=== PATIENT | female | born 1980 | race Caucasian/White ===

== ENCOUNTER 2019-04-06 05:46 | Inpatient (IN) | payer OTHER ==
[2019-04-03 10:19] VITALS: BMI 34.6
[2019-04-06] MEDS ORDERED: CeleCOXIB 100 MG CAP ONE (06:13)
[2019-04-06] MEDS ORDERED: Gabapentin 300 MG CAP ONE (06:13)
[2019-04-06] MEDS ORDERED: Famotidine/PF 20 mg/2ml Vial ONE (06:14)
[2019-04-06] MEDS ORDERED: Bupivacaine HCl 0.5%/Epinephrine 1:200,000/PF 30 ml Vial ONE (06:40)
[2019-04-06] MEDS ORDERED: Fentanyl 100 MCG/2 ML VIAL ONE ×2 (06:57→07:27)
[2019-04-06] MEDS ORDERED: Ketamine 50 MG/ML (10ML VIAL) ONE (06:57)
[2019-04-06] MEDS ORDERED: Midazolam HCl 2 mg/2 ml Vial ONE (07:26)
[2019-04-06] MEDS ORDERED: HYDROcodone/Acetaminophen 5/325 mg Tablet PO PRN (09:12)
[2019-04-06] MEDS ORDERED: Morphine 4 MG/ML VIAL SLOW IVP PRN (09:12)
[2019-04-06] MEDS ORDERED: diphenhydrAMINE 25 MG CAP PO PRN (09:12)
[2019-04-06] MEDS ORDERED: Ondansetron PF 4 MG/2 ML Vial IVP PRN (09:12)
[2019-04-06] MEDS ORDERED: Bisacodyl 10 MG SUPP PR PRN (09:12)
[2019-04-06] MEDS ORDERED: Zolpidem Tartrate 5 MG TAB PO PRN (09:12)
[2019-04-06] MEDS ORDERED: Promethazine HCl 25 MG/ML VIAL IM PRN ×2 (09:12→09:27)
[2019-04-06] MEDS ORDERED: Simethicone Chewable 80 MG TAB PO PRN (09:12)
[2019-04-06] MEDS ORDERED: Ondansetron HCl/PF 4 MG/2 ML Vial IVP PRN (09:27)
[2019-04-06] MEDS ORDERED: Promethazine HCl 25 MG/ML VIAL SLOW IVP PRN (09:27)
[2019-04-06] MEDS ORDERED: Promethazine HCl 25 MG/ML VIAL ONE (09:40)
--- NOTE | 2019-04-06 14:35 | OP ---
DATE OF PROCEDURE: 04/06/2019 PREOPERATIVE DIAGNOSES: 1. Persistent cervical intraepithelial neoplasia, 2 to 3, despite prior loop electrosurgical excision procedure. 2. Abnormal uterine bleeding. POSTOPERATIVE DIAGNOSES: 1. Persistent cervical intraepithelial neoplasia, 2 to 3, despite prior loop electrosurgical excision procedure. 2. Abnormal uterine bleeding. PROCEDURE PERFORMED: A robotic-assisted total laparoscopic hysterectomy with bilateral salpingectomy, remaining fallopian tube remnants. CONSTRUCTION EXECUTIVE: Yvette oWodward PA-C COMPLICATIONS: None. ANESTHESIA: General. ESTIMATED BLOOD LOSS: 50 mL. IV FLUIDS: 1300 mL. URINARY OUTPUT: 70 mL. FINDINGS: Normal-appearing external genitalia. Normal vaginal and cervical epithelium. An 8-cm uterus. Normal-appearing bilateral fallopian tube remnants and bilateral ovaries. Transperitoneal identification of bilateral ureters including peristalsis. INDICATIONS FOR PROCEDURE: Ms. Bonnie Moran is a 38-year-old female, who presented originally as a consultation for an abnormal Pap smear. She had undergone a LEEP procedure and then was followed at due to positive margins. The patient then did have cervical intraepithelial neoplasia still remaining. She was counseled on her options of repeat excisional procedure versus a hysterectomy and the patient preferred a hysterectomy. She also had abnormal uterine bleeding and therefore underwent an endometrial biopsy, which was benign. PROCEDURE IN DETAIL: The patient was brought to the operating room. She was placed under general anesthesia. The patient was placed in dorsal lithotomy position using Roney stirrups. She was prepped and draped in a sterile fashion. An official time-out was performed. She was given Ancef for surgical prophylaxis. A single-sided speculum was placed in the vagina. The anterior aspect of the cervix was grasped using a single-tooth tenaculum. The uterus was sounded to 8 cm. The ANAM manipulator was then appropriately secured to the ectocervix using a 4 mm cup and 8 cm length. A Quesada catheter was also placed. The remaining instruments were removed from the vagina and gloves were changed. Attention was turned to the abdomen. An umbilical incision was made using the scalpel. The Veress needle was inserted into the peritoneal cavity noting a normal pressure. A 12-mm trocar was then inserted. The patient was placed in Trendelenburg position. Two wellness assistant ports were placed in the right aspect of the abdomen and one on the left. All were placed under direct visualization using local anesthesia. There were two 8-mm robotic ports and one 11-mm wellness assistant port. The robot was then docked to the patient and instruments were inserted. The hysterectomy was begun on the left side. The left remaining fallopian tube remnant was then elevated, coagulated, and transected. The left round ligament was then coagulated multiple times and transected on the anterior leaf of the broad ligament. The left utero-ovarian ligament was then coagulated multiple times and transected. The posterior peritoneum was then undermined, dissected down towards the level of the uterosacral ligament. Prior to this, the ureter was identified and noted transperitoneally. The anterior leaf of the broad ligament was then undermined and transected down towards the level of the bladder and inferior reflection of the bladder was performed. The left uterine vessels were further skeletonized. The attention was turned to the right aspect of the uterus. The right fallopian tube remnant was elevated, coagulated, and then transected as well. The right round ligament was also coagulated and then transected. The right utero-ovarian ligament was coagulated and transected and the posterior leaf of the broad ligament was also undermined and transected down to the level of the uterosacral ligament. The anterior aspect was further dissected allowing anterior reflection of the bladder creating a bladder flap. The right uterine vessels were further skeletonized. The right uterine vessels were then coagulated multiple times and transected creating hemostasis and the same was performed to the left aspect. The colpotomy was performed in a circumferential fashion until the vaginal tissue was completely dissected away from the cervix. The uterus and cervix and ANAM manipulator were then delivered through the vagina without complication. The pelvis was irrigated and cleared of all clot and debris. The vaginal cuff was closed in a running fashion using 2-0 Stratafix suture. There was a slight area of bleeding on the left aspect of the cuff, which was controlled with the closure of the cuff and suture ligation. The suture was removed. The pelvis was again irrigated and cleared of all clot and debris. The abdominal pressure was decreased down to 3, noting no bleeding from the cuff or any of the pedicles. The instruments were then removed. The robot was undocked from the patient. The patient was taken out of the Trendelenburg position. The abdomen was deflated and the trocars were removed. The fascia of the 12 mm camera incision was closed using 0 Vicryl and the skin incisions were closed using 4-0 Monocryl and Dermabond. The patient tolerated the procedure well. There were no complications. She was extubated without difficulty and all counts were correct x2. Job ID: [id number]
[2019-04-06] MEDS ORDERED: Rocuronium Bromide 10 MG/ML (10ML VIAL) ONE (16:33)
[2019-04-06] MEDS ORDERED: Dexamethasone 20 MG/5 ML VIAL ONE (16:33)
[2019-04-06] MEDS ORDERED: Ondansetron PF 4 MG/2 ML Vial ONE (16:33)
[2019-04-06] MEDS ORDERED: Lidocaine 1% PF 5 ML VIAL ONE (16:33)
[2019-04-06] MEDS ORDERED: Glycopyrrolate 0.2 MG/ML 5 ML SYRINGE ONE ×2 (16:33)
[2019-04-06] MEDS ORDERED: PROPOFOL 200 MG/20 ML VIAL ONE (16:33)
[2019-04-06] MEDS ORDERED: Ketorolac Tromethamine 30 MG/ML VIAL ONE (16:33)
[2019-04-06] MEDS: Ketorolac Tromethamine 30 MG/ML VIAL IVP SCH ×2 (19:53→20:08)
[2019-04-06] MEDS: Sodium Chloride 0.9% 1,000 ML IV SCH (23:59)
[2019-04-07] MEDS: Ketorolac Tromethamine 30 MG/ML VIAL IVP SCH ×4 (00:03→12:49)
[2019-04-07] MEDS: Sodium Chloride 0.9% 1,000 ML IV SCH ×2 (01:59→12:49)
[2019-04-07] MEDS: HYDROcodone/Acetaminophen 5/325 mg Tablet PO PRN ×3 (05:04→09:09)
[2019-04-07 06:32] LABS: Hemoglobin 11.5 g/dL (12.0-16.0); Mean Corpuscular HGB CONC 33.8 g/dL (32.0-36.0); Mean Corpuscular Hemoglobin 32.4 pg (27.0-31.0); Mean Platelet Volume 8.6 fL (7.4-10.4); Platelet Count 235 thou/uL (130-400); RBC Distribution Width 12.1 % (11.5-14.5); Red Blood Cell (RBC) Count 3.53 mill/uL (4.20-5.40); White Blood Cell (WBC) Count 14.9 thou/uL (4.8-10.8)
[2019-04-07 06:51] LABS: Anion Gap 12 mmol/L (10-20); BUN (Urea Nitrogen) 10 mg/dL (7.0-18.7); Calc. Creatinine Clearance 157 mL/min (70-130); Calcium 8.5 mg/dL (7.8-10.44); Carbon Dioxide 21 mmol/L (22-29); Chloride 108 mmol/L (98-107); Estimated GFR-MDRD 90; Glucose 111 mg/dL (70-105); Potassium 4.2 mmol/L (3.5-5.1); Sodium 137 mmol/L (136-145)
--- NOTE | 2019-04-07 09:17 | PRG ---
DATE OF SERVICE: 04/07/2019 HISTORY OF PRESENT ILLNESS: Postoperative day #1, status post robotic-assisted total laparoscopic hysterectomy and bilateral salpingectomy for persistent ISAAC 2 to 3. SUBJECTIVE: The patient reports good pain control with oral medications. She is voiding, passing flatus, ambulating and tolerating an oral diet. She has no complaints this morning. She denies any vaginal bleeding. OBJECTIVE: VITAL SIGNS: Blood pressure 118/67, pulse 75, respiratory rate 16, oxygen saturation 98% on room air, and temperature is 98.2. GENERAL: No acute distress. CARDIOVASCULAR: Regular rate. RESPIRATORY: Unlabored breathing. ABDOMEN: Soft. Mild distention. Incisions clean, dry, and intact with Dermabond. Slight bruising at an umbilical incision. Otherwise, no additional bruising on the other sites. Mild tenderness to palpation as expected for postoperative day #1. EXTREMITIES: Negative Homans'. No edema. LABORATORY DATA: White blood cell 14.9, hemoglobin is 11.5, hematocrit 33.9, and platelets 235. Creatinine is 0.73. ASSESSMENT: Postoperative day #1, status post robotic-assisted total laparoscopic hysterectomy and bilateral salpingectomy. PLAN: The patient is meeting all requirements for discharge. We will plan for discharge back to correction this morning with appropriate postoperative followup and postoperative medications. Job ID: [id number]
[2019-04-07 12:09] VITALS: BP 127/61; TEMP 98.3
--- NOTE | 2019-04-07 12:21 | DIS ---
DATE OF ADMISSION: 04/06/2019 DATE OF DISCHARGE: 04/07/2019 ADMISSION DIAGNOSIS: Postoperative pain control, status post robotic-assisted total laparoscopic hysterectomy with bilateral salpingectomy. POSTOPERATIVE DIAGNOSIS: Postoperative pain control, status post robotic-assisted total laparoscopic hysterectomy with bilateral salpingectomy. BRIEF HOSPITAL COURSE: Ms. Bonnie Moran is a 38-year-old female, postoperative day #1, status post robotic-assisted total laparoscopic hysterectomy with bilateral salpingectomy for persistent ISAAC 2 to 3. Her intraoperative and postoperative course were then benign. She is meeting all requirements for discharge. Her labs, vitals, and exam are stable. She will be discharged this morning and discharged to correction. Follow up in 2 weeks. ACTIVITY RESTRICTIONS: No heavy lifting, pushing, pulling and pelvic rest for 6 weeks. MEDICATIONS: 1. Ibuprofen 800 mg one tablet every 8 hours p.r.n. pain #60 with zero refills. 2. [place] 5/325 one tablet every 6 hours p.r.n. pain, #30 with zero refills. These medications are dispensed at the correction. DIET: Regular. Job ID: [id number]
[2019-04-11] MEDS ORDERED: Ibuprofen 800 MG TAB PO SCH (22:00)
== END 2019-04-07 12:35 | DRG 741 ==
LOC: SDC 05:46 → 3SE 09:12
PROVIDERS: ADMIT Obstetrics & Gynecology; ATTEND Obstetrics & Gynecology
PROC: 0UT94ZZ Resection of Uterus, Percutaneous Endoscopic Approach (ICD-10-PCS; principal; 2019-04-06)
PROC: 0UB74ZZ Excision of Bilateral Fallopian Tubes, Percutaneous Endoscopic Approach (ICD-10-PCS; 2019-04-06)
PROC: 8E0W4CZ Robotic Assisted Procedure of Trunk Region, Percutaneous Endoscopic Approach (ICD-10-PCS; 2019-04-06)
DX: D06.9 Carcinoma in situ of cervix, unspecified (principal); N93.9 Abnormal uterine and vaginal bleeding, unspecified
CPT/HCPCS: 36415; 80048; 85027; 86850; 86900; 86901; 88307; J0131; J0670; J0690; J1100; J1885; J2001; J2250; J2405; J2550; J2704; J3010; S0028